=== PATIENT | male | born 1980 | race African-American/Black ===

== ENCOUNTER 2018-05-07 14:33 | Emergency (ER) | payer SELFPAY ==
[~2018-05-07] VITALS: Ht 167.6 cm; Wt 92.9 kg
[2018-05-07 17:27] LABS: HEMATOCRIT 40.3 % (38.0-50.0); HEMOGLOBIN 14.6 G/DL (12.5-16.6); MCH 30.1 PG (29.0-34.0); MCHC 36.2 G/DL (30.0-36.0); MCV 83.1 FL (86-99); PLATELET COUNT 256 K/uL (156-360); RBC DIS.WIDTH-CV 12.1 % (11.8-14.6); RBC DIS.WIDTH-SD 36.7 % (39-53); RED BLOOD COUNT 4.85 M/uL (4.00-5.50); WHITE BLOOD COUNT 8.4 K/uL (4.1-10.2)
[2018-05-07 17:37] LABS: CHLORIDE 107 mEq/L (99-109); POTASSIUM 3.8 mEq/L (3.7-5.4)
[2018-05-07 17:38] LABS: SODIUM 139 mEq/L (136-147)
[2018-05-07 17:39] LABS: GLUCOSE 100 mg/dL (70-99)
[2018-05-07 17:43] LABS: GFR ESTIMATE (CALCULATED) > 59 mL/min/ (58.99-99999)
[2018-05-07 17:44] LABS: UREA NITROGEN (BUN) 9 mg/dL (9-23)
[2018-05-07] MEDS ORDERED: KEFLEX500 MG PO (20:27)
[2018-05-07 20:40] VITALS: BP 127/80
== END 2018-05-07 21:15 | disposition home or self-care (01) ==
LOC: EDBD 14:33 → EME 14:33
PROVIDERS: Physician Assistant
DX: N49.2 Inflammatory disorders of scrotum (principal)
CPT/HCPCS: 74177; 80048; 83605; 85027; 87040; 99281; 99284; J3010; J7030